=== PATIENT | male | born 1975 | race Caucasian/White ===

== ENCOUNTER 2019-09-24 13:24 | Emergency (ER) | payer MEDICAID ==
[~2019-09-24] VITALS: Ht 170.2 cm; Wt 99.3 kg
[2019-09-24 15:21] VITALS: Ht 170.2 cm; Wt 99.3 kg
[2019-09-24 16:03] LABS: BASOPHIL % 0.5 % (0-2); PLATELET COUNT 293 x10^3mcL (130-400); RED CELL DISTRIBUTION WIDTH 12.8 % (11.5-14.5)
[2019-09-24 16:21] LABS: CARBON DIOXIDE 28.1 mmol/L (21-32); CHLORIDE SERUM 104 mmol/L (98-107); CREATININE SERUM 0.9 mg/dL (0.7-1.3); GFR1 > 60 mL/min; GLUCOSE SERUM 92 mg/dL (74-106); POTASSIUM SERUM 4.1 mmol/L (3.5-5.1); SODIUM SERUM 140 mmol/L (136-145)
[2019-09-24 16:45] LABS: BILIRUBIN TOTAL 0.6 mg/dL (0.20-1.00)
[2019-09-24 16:46] LABS: ALBUMIN 3.8 g/dL (3.4-5.0); AST/SGOT 8 U/L (15-37)
[2019-09-24 16:48] LABS: ALKALINE PHOSPHATASE 82 U/L (46-116); ALT/SGPT 77 U/L (16-63); LIPASE 99 IU/L (73-393); TOTAL PROTEIN, SERUM 8.3 g/dL (6.4-8.2)
[2019-09-24 17:08] VITALS: BP 130/70
== END 2019-09-24 17:08 | disposition home or self-care (01) ==
LOC: ED 13:24
PROVIDERS: Emergency Medicine
DX: R10.33 Periumbilical pain (principal); R11.0 Nausea
CPT/HCPCS: 36415; Q0162

== ENCOUNTER 2020-02-29 15:51 | Emergency (ER) | payer OTHER ==
[~2020-02-29] VITALS: Ht 167.6 cm; Wt 98.0 kg
[2020-02-29 16:11] VITALS: Ht 167.6 cm; Wt 98.0 kg
[2020-02-29 19:00] VITALS: BP 130/78
== END 2020-02-29 19:00 | disposition home or self-care (01) ==
LOC: ED 15:51
DX: S61.012A Laceration without foreign body of left thumb without damage to nail, initial encounter (principal); W45.8XXA Other foreign body or object entering through skin, initial encounter; Y93.89 Activity, other specified; Y92.89 Other specified places as the place of occurrence of the external cause; Y99.8 Other external cause status
CPT/HCPCS: 90715; J2001